=== PATIENT | female | born 1955 | race Caucasian/White ===

== ENCOUNTER 2018-04-14 08:23 | Emergency (ER) | payer SELFPAY ==
[~2018-04-14] VITALS: Ht 167.6 cm; Wt 67.3 kg
[2018-04-14 08:29] VITALS: BP 170/107
--- NOTE | 2018-04-14 08:34 | NUR ---
Pt to room from [facility], ambulatory with steady gait.
--- NOTE | 2018-04-14 08:47 | NUR ---
Yosef MCDUFFIE at bedside to evaluate pt.
[2018-04-14] MEDS ORDERED: KETOROLAC 30 MG/1 ML ONE (08:56)
--- NOTE | 2018-04-14 08:59 | NUR ---
Pt medicated per MAR denies other needs.
[2018-04-14] MEDS ORDERED: KETOROLAC 30 MG/1 ML IM ONE (09:00)
--- NOTE | 2018-04-14 09:30 | NUR ---
Pt states pain improved after medications, pain 2/10 at this time.
== END 2018-04-14 09:40 | disposition home or self-care (01) ==
LOC: ED 09:33
DX: S39.012A Strain of muscle, fascia and tendon of lower back, initial encounter (principal); X58.XXXA Exposure to other specified factors, initial encounter; Y93.89 Activity, other specified; Y92.89 Other specified places as the place of occurrence of the external cause; Y99.8 Other external cause status
CPT/HCPCS: 96372; 99283; J1885